=== PATIENT | female | born 1965 | race African-American/Black ===

== ENCOUNTER 2017-04-05 00:04 | Emergency (ER) | payer SELFPAY ==
[~2017-04-05] VITALS: Ht 167.6 cm; Wt 75.0 kg
[2017-04-05 07:34] VITALS: BP 124/82
[2017-04-05] MEDS ORDERED: TETANUS, DIPHTHERIA, PERTUSSIS VAC/PF 0.5ML (>7YR OLD) IM ONE (07:45)
[2017-04-05 08:11] LABS: CLARITY URINE CLEAR (CLEAR); COLOR URINE YELLOW (YELLOW); GLUCOSE URINE NEGATIVE (NEGATIVE); KETONES URINE NEGATIVE (NEGATIVE); LEUKOCYTE ESTERASE URINE NEGATIVE (NEGATIVE); NITRITE URINE NEGATIVE (NEGATIVE); OCCULT BLOOD URINE NEGATIVE (NEGATIVE); PROTEIN URINE NEGATIVE (NEGATIVE); SPECIFIC GRAVITY URINE 1.012 (1.005-1.030); UROBILINOGEN URINE 0.2 E.U./dL (0.2-1.0)
== END 2017-04-05 10:00 | disposition home or self-care (01) ==
LOC: ER 00:04
DX: S01.511A Laceration without foreign body of lip, initial encounter (principal); S00.83XA Contusion of other part of head, initial encounter; S02.5XXA Fracture of tooth (traumatic), initial encounter for closed fracture; F10.129 Alcohol abuse with intoxication, unspecified; W01.0XXA Fall on same level from slipping, tripping and stumbling without subsequent striking against object, initial encounter; Y93.89 Activity, other specified; Y92.89 Other specified places as the place of occurrence of the external cause; I10 Essential (primary) hypertension; Z86.59 Personal history of other mental and behavioral disorders
CPT/HCPCS: 81003; 90471; 90715; 99283

== ENCOUNTER 2019-01-05 15:47 | Emergency (ER) | payer MEDICAID ==
[~2019-01-05] VITALS: Ht 160 cm; Wt 77.0 kg
[2019-01-05 19:05] LABS: CLARITY URINE CLEAR (CLEAR); COLOR URINE YELLOW (YELLOW); KETONES URINE NEGATIVE (NEGATIVE); LEUKOCYTE ESTERASE URINE NEGATIVE (NEGATIVE); NITRITE URINE NEGATIVE (NEGATIVE); OCCULT BLOOD URINE NEGATIVE (NEGATIVE); PROTEIN URINE TRACE (NEGATIVE); SPECIFIC GRAVITY URINE 1.019 (1.005-1.030); UROBILINOGEN URINE 0.2 E.U./dL (0.2-1.0)
[2019-01-05] MEDS ORDERED: ONDANSETRON HCL 4MG/2ML INJ IV STA (19:22)
[2019-01-05] MEDS ORDERED: ACETAMINOPHEN WITH CODEINE 300/30MG TABLET PO STA (19:22)
[2019-01-05] MEDS ORDERED: SODIUM CHLORIDE 0.9% 100 ML IV ONE (19:30)
[2019-01-05 19:51] LABS: BASOPHILS % 0.4 % (0.0-2.0); EOSINOPHILS % 2.5 % (0.0-5.0); HEMATOCRIT. 34.4 % (36.0-48.0); HEMOGLOBIN. 11.5 g/dL (12.0-16.0); LYMPHOCYTES % 37.4 % (20.0-50.0); MEAN CORPUSCULAR VOLUME 95.8 fL (81.0-99.0); MEAN PLATELET VOLUME 8.5 fl (7.4-10.4); NEUTROPHILS % 50.7 % (40.0-76.0); PLATELET 217 x1000/uL (130-400); RED CELL DISTRIBUTION WIDTH 13.7 % (11.6-14.6)
[2019-01-05 19:58] LABS: CHLORIDE 106 mEq/L (98-107)
[2019-01-05 21:03] VITALS: BP 131/91
== END 2019-01-05 21:03 | disposition home or self-care (01) ==
LOC: ER 15:47
DX: R05 Cough (principal); I10 Essential (primary) hypertension; F32.9 Major depressive disorder, single episode, unspecified
CPT/HCPCS: 36415; 71045; 80053; 81003; 83690; 85025; 99284; J2405; J7050

== ENCOUNTER 2021-02-19 19:38 | Emergency (ER) | payer MEDICAID ==
[~2021-02-19] VITALS: Ht 160 cm; Wt 80.0 kg
[2021-02-19] MEDS ORDERED: SODIUM CHLORIDE 0.9% 1,000 ML IV ONE (20:30)
[2021-02-19] MEDS ORDERED: DEXAMETHASONE 0.5MG/5ML ORAL SYR PO ONE (20:30)
[2021-02-19] MEDS ORDERED: LEVOFLOXACIN 250MG TABLET PO ONE (20:30)
[2021-02-19 20:43] LABS: BASOPHILS % 0.6 % (0.0-2.0); EOSINOPHILS % 2.7 % (0.0-5.0); HEMATOCRIT. 34.2 % (36.0-48.0); HEMOGLOBIN. 11.8 g/dL (12.0-16.0); LYMPHOCYTES % 41.2 % (20.0-50.0); MEAN CORPUSCULAR HEMOGLOBIN 36.1 pg (28.0-32.0); MEAN CORPUSCULAR VOLUME 104.2 fL (81.0-99.0); MEAN PLATELET VOLUME 8.5 fl (7.4-10.4); MONOCYTES % 6.1 % (2.0-8.0); NEUTROPHILS % 49.4 % (40.0-76.0); PLATELET 185 x1000/uL (130-400); RED BLOOD CELL COUNT 3.28 mill/uL (4.2-5.4); RED CELL DISTRIBUTION WIDTH 13.7 % (11.6-14.6)
[2021-02-19] MEDS ORDERED: DEXAMETHASONE 4MG TABLET PO NR (20:45)
[2021-02-19 20:59] LABS: CHLORIDE 100 mEq/L (98-107)
[2021-02-19] MEDS ORDERED: LEVO500T89 MT (22:38)
[2021-02-19] MEDS ORDERED: POTASSIUM CHLORIDE 20MEQ/PACKET PO ONE (22:45)
[2021-02-19 22:56] VITALS: BP 141/73
== END 2021-02-19 22:59 | disposition home or self-care (01) ==
LOC: ER 19:38
DX: J32.9 Chronic sinusitis, unspecified (principal); E86.0 Dehydration; E86.1 Hypovolemia; I10 Essential (primary) hypertension; Z88.0 Allergy status to penicillin
CPT/HCPCS: 36415; 71045; 80053; 83880; 84484; 85025; 93005; 96360; 99285; J7030; J8540

== ENCOUNTER 2024-09-05 09:41 | Emergency (ER) | payer MEDICAID ==
[~2024-09-05] VITALS: Ht 160 cm; Wt 78.0 kg
[~2024-09-05 09:41] MED LIST: LEVO-65 MT
[2024-09-05 09:45] VITALS: O2SAT 100
[2024-09-05 09:50] VITALS: BP 160/74; PULSE 82; RESP 16; TEMP 98.5; O2SAT 100
[2024-09-05] MEDS ORDERED: P50 MT (12:34)
[2024-09-05] MEDS ORDERED: ALBU18HF2 IH (12:34)
== END 2024-09-05 13:18 | disposition home or self-care (01) ==
LOC: ER 09:41
DX: J40 Bronchitis, not specified as acute or chronic (principal); I10 Essential (primary) hypertension; Z88.0 Allergy status to penicillin; Z20.822 Contact with and (suspected) exposure to COVID-19
CPT/HCPCS: 71046; 87426; 87804; 99284

== ENCOUNTER 2025-01-12 07:52 | Emergency (ER) | payer MEDICAID, OTHER ==
[~2025-01-12] VITALS: Ht 160 cm; Wt 75.0 kg
[~2025-01-12 07:52] MED LIST changes: +ALBU18HF2 IH; +P50 MT
[2025-01-12] MEDS ORDERED: METHYLPREDNISOLONE SOD SUCC 125MG/2ML (ACT-O-VIAL) IV STA (07:55)
[2025-01-12] MEDS ORDERED: IPRATROPIUM BROMIDE (0.02%) 0.5MG/2.5ML NEB HHN STA (07:55)
[2025-01-12] MEDS ORDERED: ALBUTEROL (0.083%) 2.5MG/3ML NEB HHN STA (07:55)
[2025-01-12 07:58] VITALS: TEMP 36.9; O2SAT 100
[2025-01-12] MEDS ORDERED: VANCOMYCIN 1G PREMIX 200 ML IV ONE (08:00)
[2025-01-12] MEDS ORDERED: MAGNESIUM 2 G PREMIX 50 ML IV ONE (08:00)
[2025-01-12] MEDS ORDERED: PIPERACILLIN/TAZO 3.375G/50ML 50 ML IV ONE (08:00)
[2025-01-12] MEDS: ACETAMINOPHEN 325MG TABLET PO NR (08:54)
[2025-01-12] MEDS ORDERED: TOPUD PO (10:23)
[2025-01-12 10:59] VITALS: BP 197/90; PULSE 69; RESP 18; O2SAT 100
== END 2025-01-12 11:36 | disposition home or self-care (01) ==
LOC: ER 07:52
DX: S06.0XAA Concussion with loss of consciousness status unknown, initial encounter (principal); M25.512 Pain in left shoulder; I10 Essential (primary) hypertension; J45.909 Unspecified asthma, uncomplicated; Z88.0 Allergy status to penicillin; M94.0 Chondrocostal junction syndrome [Tietze]; W22.8XXA Striking against or struck by other objects, initial encounter; Y93.89 Activity, other specified; Y92.89 Other specified places as the place of occurrence of the external cause; Y99.8 Other external cause status
CPT/HCPCS: 99282

== ENCOUNTER 2025-04-06 14:21 | Emergency (ER) | payer OTHER ==
[~2025-04-06] VITALS: Ht 160 cm; Wt 73.0 kg
[~2025-04-06 14:21] MED LIST changes: +TOPUD PO
[2025-04-06 14:41] VITALS: TEMP 37.1; O2SAT 100
[2025-04-06] MEDS ORDERED: IBUP-2029 MT (16:16)
[2025-04-06] MEDS ORDERED: METH-653 MT (16:16)
[2025-04-06] MEDS: KETOROLAC 30MG/ML VIAL IM ONE (16:30)
[2025-04-06 16:48] VITALS: BP 194/96; PULSE 86; RESP 18; O2SAT 100
== END 2025-04-06 16:51 | disposition home or self-care (01) ==
LOC: ER 14:21
DX: S43.401A Unspecified sprain of right shoulder joint, initial encounter (principal); S63.501A Unspecified sprain of right wrist, initial encounter; J45.909 Unspecified asthma, uncomplicated; I10 Essential (primary) hypertension; Z88.0 Allergy status to penicillin; W10.9XXA Fall (on) (from) unspecified stairs and steps, initial encounter; Y93.89 Activity, other specified; Y92.89 Other specified places as the place of occurrence of the external cause; Y99.8 Other external cause status
CPT/HCPCS: 73030; 73100; 99284; Z7610